=== PATIENT | male | born 1990 | race Caucasian/White ===

== ENCOUNTER 2022-12-04 09:57 | Emergency (ER) | payer BC ==
[~2022-12-04] VITALS: Ht 185.4 cm; Wt 108.9 kg
[2022-12-04 10:30] VITALS: O2SAT 96
[2022-12-04] MEDS ORDERED: SODIUM CHLORIDE 0.9% 1000ML 1,000 ML IV STA (10:41)
[2022-12-04] MEDS ORDERED: IOPAMIDOL 370 MG/ML 100 ML INFUS..BTL INJ ONE (11:00)
[2022-12-04] MEDS ORDERED: SODIUM CHLORIDE 0.9% 1000ML 1,000 ML ONE (11:12)
== END 2022-12-04 12:07 | disposition home or self-care (01) ==
LOC: FSED 10:02
DX: R10.9 Unspecified abdominal pain (principal)
CPT/HCPCS: 74177; 80048; 80076; 81003; 85025; 99284; J7030; Q9967